=== PATIENT | female | born 1930 | race Caucasian/White ===

== ENCOUNTER 2017-08-03 08:31 | Emergency (ER) | payer MEDICARE, MEDICAID ==
[2016-10-20 13:10] VITALS: BMI 24.1
[~2017-08-03 08:31] MED LIST: AFRIN NASAL SPR15 ML NASAL; BAYER CHEWABLE81 MG PO; CALCIUM 600 +1 EAC3 PO; CALTRATE 600 M600 M1 PO; CAPOTEN12.5 MG PO; CHERATUSSIN AC473 ML PO; CLARITIN 10 MG10 MG PO; FUROSEMIDE20 MG PO; HYDROCODON-ACE1 EAC7 PO; LIPITOR80 MG PO; MEXITIL 150 MG150 MG PO; PLAVIX75 MG PO; PREDNISONE20 MG PO; PROTONIX40 MG PO; XALATAN 0.0052.5 ML LEFT EYE
[2017-08-03 09:45] LABS: AMORPHOUS SEDIMENT <1+ /lpf (NONE SEEN); APPEARANCE CLEAR (CLEAR); BACTERIA FEW /hpf (NONE SEEN); BILIRUBIN NEGATIVE (NEGATIVE); COLOR YELLOW (YELLOW); EPITHELIAL CELLS RARE /hpf (0-5); GLUCOSE NEGATIVE (NEGATIVE); KETONE NEGATIVE (NEGATIVE); MUCUS <1+ /lpf (NONE SEEN); NITRITE NEGATIVE (NEGATIVE); PROTEIN TRACE mg/dL (NEGATIVE); RED CELLS - URINE 0-5 /hpf (0-5); UROBILINOGEN NORMAL (NORMAL); WHITE CELLS - URINE OCC /hpf (0-5)
== END 2017-08-03 10:03 | disposition home or self-care (01) ==
LOC: D.ER 08:31
PROVIDERS: Emergency Medicine
DX: S22.32XA Fracture of one rib, left side, initial encounter for closed fracture (principal); X58.XXXA Exposure to other specified factors, initial encounter; Y93.89 Activity, other specified; Y92.029 Unspecified place in mobile home as the place of occurrence of the external cause